=== PATIENT | male | born 1980 | race African-American/Black ===

== ENCOUNTER 2019-04-06 21:36 | Emergency (ER) | payer SELFPAY ==
[2019-04-06 21:36] VITALS: BP 135/80; PULSE 89; RESP 15; TEMP 36.7; O2SAT 96; BMI 29.4
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
[2019-04-06] MEDS: Ibuprofen 400 MG Tablet 800 MG PO (21:51)
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
== END 2019-04-06 22:45 | disposition home or self-care (01) ==
PROVIDERS: Emergency Provider Emergency Medicine
DX: S16.1XXA Strain of muscle, fascia and tendon at neck level, initial encounter (principal); M62.838 Other muscle spasm; V43.52XA Car driver injured in collision with other type car in traffic accident, initial encounter; Y93.9 Activity, unspecified; Y92.9 Unspecified place or not applicable
CPT/HCPCS: 72040; 99282